=== PATIENT | female | born 1970 ===

== ENCOUNTER 2017-09-16 05:17 | Day surgery (SDC) | payer OTHER ==
[~2017-09-16] VITALS: Ht 174 cm; Wt 104.3 kg
[2017-09-16] VITALS (11 sets, daily range): BP systolic 98–133; BP diastolic 61–87
[~2017-09-16 05:17] MED LIST: NAPROXEN500 M1 ORAL
[2017-09-16] MEDS ORDERED: oxyCONTIN 20mg tab ORAL ONE (06:00)
[2017-09-16] MEDS ORDERED: celeBREX 200mg Cap **SURGERY PATIENTS ONLY ORAL ONE (06:00)
[2017-09-16] MEDS ORDERED: ceFAZolin sod 1 GM in D5W 110 ML IVP ONE (06:00)
[2017-09-16] MEDS ORDERED: LR 1000ml 1,000 ML IVLG SCH (06:21)
[2017-09-16] MEDS ORDERED: fentaNYL 100 mcg/2 mL IV PRN (06:30)
[2017-09-16] MEDS ORDERED: DiphenhydrAMINE 50mg/ml Inj IVP PRN (06:30)
[2017-09-16] MEDS ORDERED: HYDROcodone/Acetamin 7.5/325 tab ORAL PRN (06:30)
[2017-09-16] MEDS ORDERED: Midazolam 2mg/2ml Inj IVP PRN (06:30)
[2017-09-16] MEDS ORDERED: LORazepam Inj 2mg/ml 1ml IV PRN (06:30)
[2017-09-16] MEDS ORDERED: oxyCODONE HCL/Acetaminophen 5/325mg ORAL PRN (06:30)
[2017-09-16] MEDS ORDERED: Norco 5mg/325mg tab ORAL PRN ×2 (06:30→07:00)
[2017-09-16] MEDS ORDERED: Metoclopramide 10mg/2ml Inj IVP PRN (06:30)
[2017-09-16] MEDS ORDERED: Ketorolac 30mg Inj IV PRN ×2 (06:30)
[2017-09-16] MEDS ORDERED: Atropine Inj 1mg/10ml Syr IV PRN (06:30)
[2017-09-16] MEDS ORDERED: Labetalol 5mg/ml 20ml vial IV PRN (06:30)
[2017-09-16] MEDS ORDERED: Hydromorphone 0.5mg/0.5ml inj IVP PRN (06:30)
--- NOTE | 2017-09-16 06:35 | Anethesia Preoperative Eval ---
Anesthesia Pre-op PMH/ROS General Date of Evaluation: Sep 16, 2017 Time of Evaluation: 06:46 Anesthesiologist: Carson ASA Score: ASA 3 Mallampati Score Class I : Soft palate, uvula, fauces, pillars visible Class II: Soft palate, uvula, fauces visible Class III: Soft palate, base of uvula visible Class IV: Only hard plate visible Mallampati Classification: Class II Surgeon: Tom Diagnosis: R Shoulder Pain Surgical Procedure: R Shoulder Arthroscopy, RCR Family History: no anesthesia problems Allergies: Coded Allergies: No Known Allergies (Unverified , 09/15/17) Medications: see eMAR Past Medical History Cardiovascular: Reports: HTN Gastrointestinal/Genitourinary: Reports: GERD Neurologic/Psychiatric: Reports: other - Small Anuerysm behind L Eye-migranes Endocrine: Reports: DM Other: obesity - BMI 36 PSxH Narrative: C/S x2 Anesthesia Pre-op Phys. Exam Physician Exam Last Vital Signs Date Time Temp Pulse Resp B/P (MAP) Pulse Ox O2 Delivery O2 Flow Rate FiO2 09/16/17 05:49 97.9 79 18 119/77 96 Room Air 97.9 Constitutional: NAD Neurologic: CN 2-12 intact Cardiovascular: RRR Respiratory: CTA Gastrointestinal: S/NT/ND Airway Exam Mallampati Score: Class II MO: full ROM: limited Teeth: intact Anesthesia Pre-op A/P Risk Assessment & Plan Assessment: ASA 3 Plan: GA, Supraclavicular Block, BIS Status Change Before Surgery: No Pre-Antibiotics Dru Grams Ancef IV Given Within 1 Hr of Incision: Yes Time Given: 07:11 Kingsley Byrd MD Sep 16, 2017 06:35
[2017-09-16] MEDS ORDERED: EPINEPHrine 1mg/1ml Amp ONE (06:36)
[2017-09-16] MEDS ORDERED: Dexamethasone 4mg/ml vial ONE (06:39)
[2017-09-16] MEDS ORDERED: Lidocaine 1% MPF 10mg/ml 5ml ONE (06:39)
[2017-09-16] MEDS ORDERED: Propofol 200mg/20ml IV ONE (06:39)
[2017-09-16] MEDS ORDERED: Sodium Chloride 10ml vial INJ ONE (06:39)
[2017-09-16] MEDS ORDERED: Ropivacaine 5mg/ml Vial 30ml INJ ONE ×2 (06:39→06:52)
[2017-09-16] MEDS ORDERED: Alfentanil 2ml Inj ONE (06:46)
[2017-09-16] MEDS ORDERED: Ropivacaine 2mg/ml Amp 20ml INJ ONE (06:51)
[2017-09-16] MEDS ORDERED: Bupivacaine 0.5% Inj 30 ml vial INJ ONE (06:52)
--- NOTE | 2017-09-16 06:53 | Pre-Procedure Note/Attestation ---
Pre-Procedure Note/Attestation Complete Prior to Procedure Planned Procedure: right Procedure Narrative: rt shoulder scope, sad, mini robert, rtc debridement vs repair Indications for Procedure Pre-Operative Diagnosis: rt shoulder impingement Attestation I attest that I discussed the nature of the procedure; its benefits; risks and complications; and alternatives (and the risks and benefits of such alternatives ), prior to the procedure, with the patient (or the patient's legal labor union business representative). I attest that, if there was a reasonable possibility of needing a blood transfusion, the patient (or the patient's legal labor union business representative) was given the [facility] standardized written summary, pursuant to the [place] Var[place] Blood Safety Act ([place] Health and Safety Code # 1645, as amended). I attest that I re-evaluated the patient just prior to the surgery and that there has been no change in the patient's H&P, except as documented below: none Jordon Santos MD Sep 16, 2017 06:53
[2017-09-16] MEDS ORDERED: NS Irrig 4000ml IRRIG ONE ×2 (07:00→07:48)
[2017-09-16] MEDS ORDERED: Tylenol #3 tab (300mg/30mg) ORAL PRN (07:00)
[2017-09-16] MEDS ORDERED: D5 1/2NS 1,000 ML IV SCH (07:00)
[2017-09-16] MEDS ORDERED: LR 1000ml ONE (07:00)
--- NOTE | 2017-09-16 07:58 | Immediate Post-Op Evaluation ---
Immediate Post-Op Evalulation Immediate Post-Op Evalulation Procedure: R Shoulder Arthroscopy, RCR Date of Evaluation: Sep 16, 2017 Time of Evaluation: 08:35 IV Fluids: 600 lr Blood Products: 0 Estimated Blood Loss: 15 Urinary Output: 0 Blood Pressure Systolic: 125 Blood Pressure Diastolic: 64 Pulse Rate: 75 Respiratory Rate: 16 O2 Sat by Pulse Oximetry: 100 Temperature (Fahrenheit): 97.6 Pain Score (1-10): 1 Nausea: No Vomiting: No Complications 0 Patient Status: awake, reacts, patent, extubated, none Dru Grams Ancef IV Given Within 1 Hr of Incision: Yes Time Given: 07:11 Kingsley Byrd MD Sep 16, 2017 07:58
--- NOTE | 2017-09-16 07:59 | 48 Hour Post Anesthesia Eval ---
Post Anesthesia Evaluation Procedure: R Shoulder Arthroscopy, RCR Date of Evaluation: Sep 16, 2017 Time of Evaluation: 10:43 Blood Pressure Systolic: 134 0: 72 Pulse Rate: 74 Respiratory Rate: 18 Temperature (Fahrenheit): 98.2 O2 Sat by Pulse Oximetry: 100 Airway: patent Nausea: No Vomiting: No Pain Intensity: 1 Hydration Status: adequate Cardiopulmonary Status: Stable Mental Status/LOC: patient returned to baseline Follow-up Care/Observations: 0 Post-Anesthesia Complications: 0 Follow-up care needed: ready to discharge Kingsley Byrd MD Sep 16, 2017 07:59
--- NOTE | 2017-09-16 08:14 | Brief Operative Note ---
Immediate Post Operative Note Operative Note Chief Complaint: rt shoulder pain Pre-op Diagnosis: rt shoulder impingement Procedure: rt shoulder scope, sad, mini robert, rtc debridement Post-op Diagnosis: same as pre-op Findings: consistent w/pre-op dx studies Surgeon: md ilsa Satellite Tv Technician Installer: alex bahena Anesthesiologist: md george Anesthesia: general, regional Specimen: none Complications: none Condition: stable Fluids: ns Estimated Blood Loss: minimal Drains: none Implant(s) used?: No Candi Bahena Sep 16, 2017 08:14
--- NOTE | 2017-09-16 11:30 | Operative Note - Dictated ---
DATE OF OPERATION: 09/16/2017 PREOPERATIVE DIAGNOSES: 1. Right shoulder partial-thickness tear of the rotator cuff. 2. Right shoulder impingement. POSTOPERATIVE DIAGNOSES: 1. Right shoulder posterior superior labral fraying and tearing without detachment. 2. Right shoulder subacromial impingement with large bone spur. 3. Right shoulder bursal-sided rotator cuff involving 10% of bursal side of the rotator cuff with a flap catching on the acromion. 4. Right shoulder bone spur underneath the distal clavicle. PROCEDURE: 1. Right shoulder arthroscopy and extensive intra-articular shaving. 2. Right shoulder debridement of the posterior superior labrum to a stable zone. 3. Right shoulder subacromial bursoscopy, bursectomy, subacromial decompression. 4. Right shoulder mini-Adair procedure (resection of inferior 30% of distal end of the clavicle for coplaning). 5. Right shoulder debridement of the bursal-sided rotator cuff tear involving 10% of the rotator cuff to a stable zone. SURGEON: Jordon Santos M.D. CREW BOSS: Candi Schmitz PA-C. Fruit [employer] Vegetable Parer was present during the actual operative portion of the case and was important and essential part of the operation. During the operation, the biology laboratory assistant held and operated the arthroscopic camera for visualization, assisted by manipulating the arm to help with visualization, and helped with essential parts of the repair process as necessary such as operating surgical instruments under surgeon supervision, suture management, and wound closures. ANESTHESIOLOGIST: Kingsley Byrd M.D. ANESTHESIA: LMA anesthesia. EBL: Minimal. COMPLICATIONS: None. SURGICAL INDICATION: The patient is a 47-year-old female, who sustained the above injury to her shoulder. The patient was treated non-operative initially, but this did not alleviate the patients symptoms. Therefore, after discussing all non-surgical and surgical options, and discussing all foreseeable risk and benefits of surgery, the patient opted for surgical treatment as described above. PATIENT POSITIONING: Patient was brought to the operating room table and was placed on the operating room table. All pressure points were well padded. General anesthesia was induced and patient was then placed in the lateral decubitus position. All pressure points were well padded again and an axillary roll was placed. Patient shoulder was then prepped and draped in the usual sterile fashion. Time out was performed and the appropriate preoperative antibiotic was given by the anesthesiologist. EXAMINATION OF SHOULDER UNDER ANESTHESIA: The shoulder was examined under anesthesia with all muscles well relaxed. The shoulder was forward flexed, abducted and was placed through full range of external and internal rotation. The anterior, posterior, and inferior stability of the shoulder was checked. The exam revealed no evidence of adhesive capsulitis and no evidence of instability. PORTAL PLACEMENT: The posterior portal was established 2 cm inferior and 1 cm medial to the edge of the posterior acromion. 1 cm skin incision was made using an eleven blade and using the blunt obturator, the cannula was gently placed through the capsule. The mid-glenoid portal was established just lateral to the coracoid process under direct visualization. Direction of the cannula was first established using a spinal needle, and subsequently, the cannula was placed through the capsule with a blunt obturator. DIAGNOSTIC ARTHROSCOPY: The biceps tendon was probed and pulled through the joint for visualization. It appeared normal. The biceps anchor was palpated with a probe and was visualized. There was some fraying of the posterior superior labrum and a flap that was catching on the glenohumeral joint. The posterior labrum and axillary recess was visualized. This was normal and there was no evidence of loose cartilage or fragments in this area. The glenoid articular surface was visualized and it appeared normal. The articular surface of the rotator cuff was visualized and probed next. There was no evidence of articular sided rotator cuff tear extending from the supraspinatus back to the posterior cuff. The Humeral head articular surface was then visualized. There was no evidence of articular cartilage damage. Next the anterior labrum, middle glenohumeral ligament, subscapularis tendon, and the anterior inferior glenohumeral ligament were evaluated. These structures were completely normal. At this point, the scope was moved to the mid-glenoid portal and the posterior structures including the posterior labrum, posterior capsule and posterior cuff were visualized. Again, there was a posterior superior labral fraying, but there was no detachment from glenoid. The subscapularis recess was devoid of any loose bodies and the anterior capsule was well attached to the humeral neck. The middle and anterior inferior glenohumeral ligament was visualized. These structures were completely normal. OPERATIVE DEBRIDEMENTS AND REPAIR: Care was given to all partial thickness tears and frayed structures in the shoulder joint. The frayed rotator cuff and labrum was debrided using a shaver initially through the anterior portal and subsequently through the posterior portal to complete the debridement. This allowed for smooth debridement of all affected structures and all loose fragments were removed. DIAGNOSTIC BURSOSCOPY AND SUBACROMIAL DECOMPRESSION: The subacromial bursa was entered from the posterior portal. The anterior portal was established under the CA ligament using a switching stick. Subacromial arthroscopy was initiated. There was extensive bursitis and thickened and inflamed bursa tissue present. The CA ligament appeared to be scuffed and frayed. The shaver was placed through the anterior cannula and debridement of the hypertrophic bursa tissue was accomplished. Once visualization was adequate, a lateral portal was established using a blunt trochar in the mid portion of the acromion bone in the anterior-posterior direction and approximately 2 cm lateral to the lateral edge of the acromion. Using combination of shaver and electrocautery the CA ligament was released from the undersurface of the acromion and a complete bursectomy was accomplished. At this point, a subacromial decompression was performed using a mishel initially taking off 5-8 mm of the anterolateral edge of the acromion from the lateral portal and viewing from the posterior portal. Then the lateral border of the undersurface of the acromion was decompressed to the same dept as the anterolateral edge. A posterior trough was then created in the acromion in line with the posterior edge of the clavicle. At this point, the scope was placed in the lateral portal and the subacromial decompression was performed from the posterior portal decompressing the undersurface of the acromion to dept of 5-8 mm. The decompression was performed anterior to the previously marked trough all the way medially to the level of the AC joint. At all times, care was given not to take off too much bone in order to avoid risk of fracture of the acromion. An excellent subacromial decompression was performed in this fashion. At this point, the bursal side of the rotator cuff was examined. All the bursa over the rotator cuff was removed and the rotator cuff was examined with a probe. The arm was placed into external rotation, neutral, and then internal rotation and there was a small bursal-sided rotator cuff tear with 10% of the leading edge of the supraspinatus involvement. There was no full-thickness tear. The scope was then placed in the posterior portal and the subacromial decompression was rechecked to assure there is no area of bone spur that would be still impinging onto the rotator cuff. EVALUATION OF DISTAL CLAVICLE AND DISTAL CLAVICLE RESECTION: Care was given to the distal end of the clavicle. Using electrocautery and tejinder, the distal end of the bursa and soft tissue around the distal end of the clavicle was debrided and cleaned. Care was given not to inflict excessive trauma to the ligaments of the AC joint. The distal end of the clavicle appeared to have an inferior osteophyte extending down well bellow the level of the acromion at the level of the AC joint. This appeared to be impinging onto the supraspinatus muscle belly and the musculotendinous junction of the rotator cuff. A mini-Adair procedure was performed by using a mishel to resect the inferior 30% of the distal end of the clavicle. This decompression allowed space for the inferior structures to slide without impingement. This co-plained the inferior edge of the distal clavicle with the inferior edge of the acromion. At this point, care was given to the bursal-sided rotator cuff tear. This was a very small. This was 10% of thickness rotator cuff. This was debrided using a shaver to a stable zone. CONDITION AT DISCHARGE FROM OPERATING ROOM: The skin was re-approximated and sterile dressing and sling were applied. All lap counts and instrument counts were correct. Patient tolerated the procedure well without complications and was taken to the recovery room in stable conditions. Jordon Santos M.D. DR: CECILIO JOB#: [id number] CC:
== END 2017-09-16 12:15 | disposition home or self-care (01) ==
LOC: SUR 05:17
DX: M75.111 Incomplete rotator cuff tear or rupture of right shoulder, not specified as traumatic (principal); M25.811 Other specified joint disorders, right shoulder; Z82.49 Family history of ischemic heart disease and other diseases of the circulatory system; Z83.3 Family history of diabetes mellitus; I10 Essential (primary) hypertension; K21.9 Gastro-esophageal reflux disease without esophagitis; E11.9 Type 2 diabetes mellitus without complications; M75.91 Shoulder lesion, unspecified, right shoulder
CPT/HCPCS: 29824; 29826; 36415; 82962; 84703; J0171; J0690; J1100; J1885; J2250; J2405; J2704; J2795; J3490; J7120; 94003; 94150